=== PATIENT | male | born 1955 | race Caucasian/White ===

== ENCOUNTER 2019-11-09 15:15 | Outpatient (CLI) | payer OTHER | END 2019-11-09 15:22 | disposition home or self-care (01) | LOC: RAD 15:15 | DX: R07.89 Other chest pain (principal) ==

== ENCOUNTER 2021-01-07 12:19 | Outpatient (CLI) | payer OTHER | END 2021-01-07 13:09 | disposition home or self-care (01) | LOC: RAD 12:19 | PROVIDERS: ATTEND Internal Medicine Gastroenterology | DX: S60.012A Contusion of left thumb without damage to nail, initial encounter (principal) ==

== ENCOUNTER 2021-04-14 15:39 | Outpatient (CLI) | payer OTHER | END 2021-04-14 15:46 | disposition home or self-care (01) | LOC: RAD 15:39 | PROVIDERS: ATTEND Ophthalmology | DX: I51.7 Cardiomegaly (principal); Z98.41 Cataract extraction status, right eye; H25.011 Cortical age-related cataract, right eye ==

== ENCOUNTER 2021-04-15 07:41 | Outpatient (CLI) | payer OTHER | END 2021-04-15 10:48 | disposition home or self-care (01) | LOC: LAB 07:41 | PROVIDERS: ATTEND Ophthalmology | DX: D68.8 Other specified coagulation defects (principal) ==

== ENCOUNTER 2021-07-25 08:00 | Outpatient (CLI) | payer OTHER | END 2021-07-25 08:30 | disposition home or self-care (01) | LOC: PPH VACUNA 08:00 | PROVIDERS: ATTEND Emergency Medicine Pediatric Emergency Medicine | DX: Z23 Encounter for immunization (principal) ==

== ENCOUNTER 2023-07-09 10:45 | Outpatient (CLI) | payer OTHER | END 2023-07-09 10:54 | disposition home or self-care (01) | LOC: TOM 10:45 | PROVIDERS: ATTEND Radiology Diagnostic Radiology | DX: K57.32 Diverticulitis of large intestine without perforation or abscess without bleeding (principal) ==

== ENCOUNTER 2025-07-20 14:01 | Outpatient (CLI) | payer OTHER | END 2025-07-20 14:06 | disposition home or self-care (01) | LOC: RAD 14:01 | PROVIDERS: ATTEND Radiology Diagnostic Radiology | DX: R22.33 Localized swelling, mass and lump, upper limb, bilateral (principal) ==